=== PATIENT | female | born 1970 ===

== ENCOUNTER 2016-08-29 15:23 | Emergency (ER) | payer BC ==
[2016-08-29 15:32] VITALS: BP 152/79; PULSE 86; RESP 18; TEMP 98.7; O2SAT 100
[2016-08-29] MEDS ORDERED: Acetaminophen-Codeine 300/30 mg Tab PO STA (15:54)
[2016-08-29] MEDS ORDERED: Acetaminophen-Codeine 300/30 mg Tab ONE (16:25)
--- NOTE | 2016-08-29 16:32 | RAD ---
PROCEDURE: Radiographs of the Sacrum and Coccyx HISTORY: tailbone pain s/p fall COMPARISON: None available. TECHNIQUE: Frontal and lateral views of the sacrum and coccyx FINDINGS: BONES: Sacrum and coccyx unremarkable. No fracture or focal lesion. SACROILIAC JOINTS: Unremarkable. OTHER FINDINGS: None. IMPRESSION: No definite fracture.
--- NOTE | 2016-08-29 16:38 | ED PDOC ---
HPI: Back Time Seen by Provider: 08/29/16 15:37 Chief Complaint (Nursing): Back Pain Chief Complaint (Provider): Tailbone pain s/p fall 4 days ago History Per: Patient History/Exam Limitations: no limitations Onset/Duration Of Symptoms: Days Current Symptoms Are (Timing): Still Present Quality Of Discomfort: Sharp Description Of Injury (Context): Pt slipped and fell on tile floor at her home Severity: Moderate Additional Complaint(s): Pt reports taking motrin at home which is not helping. Past Medical History Reviewed: Historical Data, Nursing Documentation, Vital Signs Vital Signs: Last Vital Signs Temp 98.7 F 08/29/16 15:30 Pulse 86 08/29/16 15:30 Resp 18 08/29/16 15:30 BP 152/79 H 08/29/16 15:30 Pulse Ox 100 08/29/16 15:30 - Medical History PMH: Diabetes - Surgical History Surgical History: No Surg Hx - Family History Family History: States: No Known Family Hx - Living Arrangements Living Arrangements: With Family - Social History Current smoker - smoking cessation education provided: Yes - Home Medications Home Medications: Ambulatory Orders Medication Instructions Recorded Insulin Glargine, Recombina 3 units SC HS 05/19/16 [Lantus] Sitagliptin Phos/Metformin HCl 1 tab PO BID 05/19/16 [Janumet 50-500 mg Tablet] Acetaminophen with Codeine 1 tab PO Q6H PRN #10 tab 08/29/16 [Tylenol with Codeine No. 3 300 mg-30 mg] - Allergies Allergies/Adverse Reactions: Allergies Allergy/AdvReac Type Severity Reaction Status Date / Time No Known Allergies Allergy Verified 05/19/16 15:16 Review of Systems ROS Statement: Except As Marked, All Systems Reviewed And Found Negative Musculoskeletal: Positive for: Back Pain Physical Exam - Reviewed Nursing Documentation Reviewed: Yes Vital Signs Reviewed: Yes - Physical Exam Appears: Positive for: Well, Non-toxic, No Acute Distress Head Exam: Positive for: ATRAUMATIC, NORMAL INSPECTION, NORMOCEPHALIC Skin: Positive for: Normal Color, Warm, DRY Eye Exam: Positive for: Normal appearance ENT: Positive for: Normal ENT Inspection Neck: Positive for: Normal, Painless ROM Cardiovascular/Chest: Positive for: Regular Rate, Rhythm Respiratory: Positive for: CNT, Normal Breath Sounds Back: Positive for: Other ((+) tailbone pain). Negative for: Normal Inspection Extremity: Positive for: Normal ROM Neurologic/Psych: Positive for: Alert, Oriented - Laboratory Results Result Diagrams: 08/29/16 17:58 08/29/16 17:58 - ECG O2 Sat by Pulse Oximetry: 100 Disposition - Clinical Impression Clinical Impression: Coccyx contusion, Hyperglycemia - Patient ED Disposition Is Patient to be Admitted: No Counseled Patient/Family Regarding: Diagnosis, Need For Followup, Rx Given - Disposition Referrals: [facility] [Outside] Disposition: Routine/Home Disposition Time: 16:37 Condition: GOOD Prescriptions: Acetaminophen with Codeine [Tylenol with Codeine No. 3 300 mg-30 mg] 1 tab PO Q6H PRN #10 tab PRN Reason: Pain, Severe (8-10) Instructions: Coccyx Injury (ED)
[2016-08-29] MEDS ORDERED: Sodium Chloride 0.9% 1,000 ML IV STA (16:57)
[2016-08-29 18:04] LABS: BASO # 0.1 K/uL (0.0-0.2); BASO % 0.4 % (0.0-2.0); EOS # 0.3 K/uL (0.0-0.7); EOS % 2.4 % (0.0-4.0); HEMATOCRIT 40.1 % (34.0-47.0); LYMPH # 4.9 K/uL (1.0-4.3); LYMPH % 36.7 % (20.0-40.0); MEAN CORPUSCULAR HGB CONC 33.4 g/dL (33.0-37.0); MEAN PLATELET VOLUME 9.8 fl (7.2-11.7); MONO # 0.8 K/uL (0.0-0.8); MONO % 5.7 % (0.0-10.0); NEUT # 7.3 K/uL (1.8-7.0); NEUT % 54.8 % (50.0-75.0); NRBC % 0.1 % (0.0-0.0); WHITE BLOOD COUNT 13.4 K/uL (4.8-10.8)
[2016-08-29 18:12] LABS: RBC URINE 1 /hpf (0-3); URINE BILIRUBIN NEGATIVE (NEGATIVE); URINE BLOOD NEGATIVE (NEGATIVE); URINE COLOR STRAW (YELLOW); URINE GLUCOSE (UA) >=500 mg/dL (Normal); URINE KETONE NEGATIVE (NEGATIVE); URINE LEUKOCYTE ESTERASE NEG Leu/uL (Negative); URINE PROTEIN NEGATIVE (NEGATIVE); URINE UROBILINOGEN 0.2-1.0 mg/dL (0.2-1.0); WBC URINE 1 /hpf (0-5)
[2016-08-29 18:18] LABS: ALB/GLOB RATIO 1.5 (1.0-2.1); ALKALINE PHOSPHATASE 123 U/L (38-126); ALT/SGPT 49 U/L (9-52); AST/SGOT 26 U/L (14-36); BILIRUBIN,TOTAL 0.2 mg/dl (0.2-1.3); BLOOD UREA NITROGEN 13 mg/dl (7-17); CALCIUM 9.7 mg/dL (8.4-10.2); CARBON DIOXIDE 25 mmol/L (22-30); CHLORIDE 100 mmol/L (98-107); GFR AFRICAN-AMERICAN > 60; GLUCOSE,RANDOM 372 mg/dL (65-105); POTASSIUM 4.1 MMOL/L (3.6-5.0); SODIUM 134 mmol/l (132-148); TOTAL PROTEIN 7.2 G/DL (6.3-8.2)
== END 2016-08-29 19:39 | disposition home or self-care (01) ==
LOC: H.ER 15:23
DX: S30.0XXA Contusion of lower back and pelvis, initial encounter (principal); W19.XXXA Unspecified fall, initial encounter; Y92.008 Other place in unspecified non-institutional (private) residence as the place of occurrence of the external cause; E11.65 Type 2 diabetes mellitus with hyperglycemia; F17.200 Nicotine dependence, unspecified, uncomplicated; Z79.4 Long term (current) use of insulin
CPT/HCPCS: 72220; 80053; 81003; 81025; 82948; 85025; 99282; J7040

== ENCOUNTER 2017-01-16 12:09 | Emergency (ER) | payer BC, OTHER ==
[2017-01-16 12:29] VITALS: BP 122/78; PULSE 90; RESP 18; TEMP 97; O2SAT 100
--- NOTE | 2017-01-16 13:11 | ED PDOC ---
HPI: Eye Injury/Pain Time Seen by Provider: 01/16/17 12:42 Chief Complaint (Nursing): Eye Problem Chief Complaint (Provider): Eye Problem History Per: Patient History/Exam Limitations: no limitations Onset/Duration Of Symptoms: Days (x 5) Current Symptoms Are (Timing): Still Present Associated Symptoms: Swelling, Discharge From Eye Additional Complaint(s): Charo Jaime is a 46 y/o female who presents to the ED for evaluation of right eye irritation, onset 5 days ago. Reports the swelling and redness has been worsening since last , and patient woke up today with eye crusting and had difficulty opening eye. No contact lens use. PMD: None Past Medical History Reviewed: Historical Data, Nursing Documentation, Vital Signs Vital Signs: Last Vital Signs Temp 97 F L 01/16/17 12:26 Pulse 90 01/16/17 12:26 Resp 18 01/16/17 12:26 BP 122/78 01/16/17 12:26 Pulse Ox 100 01/16/17 12:26 - Medical History PMH: Diabetes - Surgical History Other surgeries: Hysterectomy - Family History Family History: States: Unknown Family Hx - Social History Current smoker - smoking cessation education provided: No Alcohol: None Drugs: Denies - Home Medications Home Medications: Ambulatory Orders Medication Instructions Recorded Insulin Glargine, Recombina 3 units SC HS 05/19/16 [Lantus] Sitagliptin Phos/Metformin HCl 1 tab PO BID 05/19/16 [Janumet 50-500 mg Tablet] Acetaminophen with Codeine 1 tab PO Q6H PRN #10 tab 08/29/16 [Tylenol with Codeine No. 3 300 mg-30 mg] Cephalexin [Keflex] 500 mg PO BID #14 capsule 01/16/17 Polymyxin/Trimethoprim Sulfate 1 drop XX Q6H 10 Days bottle 01/16/17 [Polytrim Ophth Soln] - Allergies Allergies/Adverse Reactions: Allergies Allergy/AdvReac Type Severity Reaction Status Date / Time No Known Allergies Allergy Verified 01/16/17 12:26 Review of Systems ROS Statement: Except As Marked, All Systems Reviewed And Found Negative Eyes: Positive for: Pain, Eyelid Inflammation, Redness Physical Exam - Reviewed Nursing Documentation Reviewed: Yes Vital Signs Reviewed: Yes - Physical Exam Appears: Positive for: Well, Non-toxic, No Acute Distress Head Exam: Positive for: ATRAUMATIC, NORMAL INSPECTION, NORMOCEPHALIC Skin: Positive for: Normal Color, Warm, Dry Eye Exam: Positive for: EOMI, PERRL, Conjunctival injection (and injection of sclera, on right eye), Other (Edema of upper right eyelid with erythema) Neurologic/Psych: Positive for: Alert, Oriented - ECG O2 Sat by Pulse Oximetry: 100 (RA) Pulse Ox Interpretation: Normal Medical Decision Making Medical Decision Making: Clinical Impression: Bacterial conjunctivitis, Sty Upon provider evaluation patient is medically stable, and requires no further treatment in the ED at this time. Patient will be discharged home with Rx for Tylenol, Keflex, and Polytrim eye drops. Counseling was provided and all questions were answered regarding diagnosis and need for follow up with PMD. Work absence note provided. There is agreement to discharge plan. Return if symptoms persist or worsen. Scribe Attestation: Documented by Bobbi Moya, acting as a scribe for Viviane Irwin PA-C Provider Scribe Attestation: All medical record entries made by the Scribe were at my direction and personally dictated by me. I have reviewed the chart and agree that the record accurately reflects my personal performance of the history, physical exam, medical decision making, and the department course for this patient. I have also personally directed, reviewed, and agree with the discharge instructions and disposition. Disposition - Clinical Impression Clinical Impression: Sty, Bacterial conjunctivitis - Patient ED Disposition Is Patient to be Admitted: No Counseled Patient/Family Regarding: Diagnosis, Need For Followup, Rx Given - Disposition Disposition: Routine/Home Disposition Time: 13:05 Condition: STABLE Prescriptions: Cephalexin [Keflex] 500 mg PO BID #14 capsule Polymyxin/Trimethoprim Sulfate [Polytrim Ophth Soln] 1 drop XX Q6H 10 Days bottle Instructions: Conjunctivitis (ED) Forms: [facility] ([place]), [facility] ED School/Work Excuse
== END 2017-01-16 13:10 | disposition home or self-care (01) ==
LOC: H.ER 12:09
DX: H10.89 Other conjunctivitis (principal); E11.9 Type 2 diabetes mellitus without complications; Z79.4 Long term (current) use of insulin

== ENCOUNTER 2017-01-18 08:58 | Emergency (ER) | payer OTHER ==
[2017-01-18 09:03] VITALS: BP 140/69; PULSE 97; TEMP 97; O2SAT 100; BMI 21.3
--- NOTE | 2017-01-18 09:36 | ED PDOC ---
HPI: Eye Injury/Pain Time Seen by Provider: 01/18/17 09:19 Chief Complaint (Nursing): Eye Problem History Per: Patient (Redness and swelling right periorbital area. Seen here started on PO antibiotics and drops with no improvement. Denies fever or pain when moving eye.) Onset/Duration Of Symptoms: Days (3) Current Symptoms Are (Timing): Still Present Severity: Mild Pain Scale Rating Of: 0 Associated Symptoms: Swelling, Discharge From Eye Past Medical History Vital Signs: Last Vital Signs Temp 97 F L 01/18/17 09:02 Pulse 97 H 01/18/17 09:02 Resp BP 140/69 01/18/17 09:02 Pulse Ox 100 01/18/17 09:02 - Medical History PMH: Diabetes - Family History Family History: States: Unknown Family Hx - Home Medications Home Medications: Ambulatory Orders Medication Instructions Recorded Insulin Glargine, Recombina 3 units SC HS 05/19/16 [Lantus] Sitagliptin Phos/Metformin HCl 1 tab PO BID 05/19/16 [Janumet 50-500 mg Tablet] Acetaminophen with Codeine 1 tab PO Q6H PRN #10 tab 08/29/16 [Tylenol with Codeine No. 3 300 mg-30 mg] Cephalexin [Keflex] 500 mg PO BID #14 capsule 01/16/17 Polymyxin/Trimethoprim Sulfate 1 drop XX Q6H 10 Days bottle 01/16/17 [Polytrim Ophth Soln] Clindamycin [Cleocin] 300 mg PO Q6 #40 cap 01/18/17 Tobramycin 0.3% [Tobramycin 5 Ml] 1 drop OP TID #1 bottle 01/18/17 - Allergies Allergies/Adverse Reactions: Allergies Allergy/AdvReac Type Severity Reaction Status Date / Time No Known Allergies Allergy Verified 01/16/17 12:26 Review of Systems Constitutional: Negative for: Fever Eyes: Positive for: Eyelid Inflammation. Negative for: Pain, Vision Change Physical Exam - Physical Exam Appears: Positive for: Non-toxic, No Acute Distress Eye Exam: Positive for: Normal appearance (periorbital swelling. No tenderness of globe. No pain EOM. Conjunctivae injected.) - ECG O2 Sat by Pulse Oximetry: 100 Disposition - Clinical Impression Clinical Impression: Periorbital cellulitis - Patient ED Disposition Is Patient to be Admitted: No - Disposition Referrals: Eduardo Rudolph MD [Staff Provider] - Disposition: Routine/Home Disposition Time: 11:22 Condition: FAIR Additional Instructions: Dr. Aguilar office 10AM tomorrow Prescriptions: Clindamycin [Cleocin] 300 mg PO Q6 #40 cap Tobramycin 0.3% [Tobramycin 5 Ml] 1 drop OP TID #1 bottle Instructions: Periorbital Cellulitis in Adults (ED) Forms: [employer] [facility] ([place])
--- NOTE | 2017-01-18 11:15 | CT ---
PROCEDURE: CT ORBITS WITHOUT CONTRAST. HISTORY: r/o orbital cellulitis right eye COMPARISON: None available. TECHNIQUE: Axial CT images of the orbits were obtained. Coronal and sagittal reformats were generated. Radiation dose: Total exam DLP = 774.28 mGy-cm. This CT exam was performed using one or more of the following dose reduction techniques: Automated exposure control, adjustment of the mA and/or kV according to patient size, and/or use of iterative reconstruction technique. FINDINGS: RIGHT ORBIT: RIGHT BONY ORBIT: Normal. RIGHT INTRAORBITAL STRUCTURES: Globe: Normal. Extraocular muscles: Normal. Post septal space: Normal. Optic Nerve: Normal. Lacrimal Apparatus: Normal. RIGHT PRESEPTAL SOFT TISSUES: There is moderate right periorbital soft tissue swelling. LEFT ORBIT: LEFT BONY ORBIT: Normal. LEFT INTRAORBITAL STRUCTURES: Globe: Normal. No evidence of lens dislocation. Extraocular muscles: Normal. Post septal space: Normal Optic Nerve: Normal. . Lacrimal Apparatus: Normal. LEFT PRESEPTAL SOFT TISSUES: Normal. OTHER: There is minimal mucosal thickening in the maxillary sinuses. The remaining included paranasal sinuses and mastoid air cells are predominantly clear. IMPRESSION: No acute orbital or maxillofacial fracture. Moderate right periorbital soft tissue swelling.
== END 2017-01-18 12:19 | disposition home or self-care (01) ==
LOC: H.ER 08:58
DX: L03.213 Periorbital cellulitis (principal); E11.9 Type 2 diabetes mellitus without complications; Z79.4 Long term (current) use of insulin